=== PATIENT | female | born 1985 | race Two or more races ===

== ENCOUNTER 2019-05-09 13:21 | Emergency (ER) | payer MEDICAID ==
[2019-05-09 14:02] LABS: BILIRUBIN,URINE NEGATIVE (NEGATIVE); GLUCOSE, URINE (UA) NEGATIVE (NEGATIVE); KETONES,URINE (UA) NEGATIVE (NEGATIVE); LEUKOCYTE ESTERASE, URINE NEGATIVE (NEGATIVE); NITRITE,URINE NEGATIVE (NEGATIVE); OCCULT BLOOD,URINE TRACE-INTA (NEGATIVE); PROTEIN,URINE NEGATIVE (NEGATIVE); UROBILINOGEN,URINE 0.2 (NORMAL) E.U./dL (NORMAL)
[2019-05-09 14:03] LABS: CLARITY,URINE CLEAR (CLEAR)
[2019-05-09 14:13] LABS: BACTERIA,URINE None Seen /HPF (None Seen); RBC,URINE 0-5 /HPF (0-5); SQUAMOUS EPITHELIAL CELL,UR NONE SEEN (<= Few)
--- NOTE | 2019-05-09 14:25 | ED Physician Documentation ---
PD HPI FEMALE - Stated complaint Stated Complaint: LBP SPOTTING 6 WKS - Chief complaint Chief Complaint: Abd Pain - History obtained from History obtained from: Patient - History of Present Illness Timing - onset: Yesterday Timing - duration: Days (1) Timing - details: Abrupt onset Severity Comments: mild blood in urine when she wiped Associated symptoms: Abdominal pain (mild diffuse cramping in low back and abdomen), Back pain, Hematuria. 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 denies: Fever, Chills Nose: reports: Reviewed and negative Throat: reports: Reviewed and negative Cardiac: reports: Reviewed and negative Respiratory: reports: Reviewed and negative GI: reports: Abdominal Pain. denies: Nausea, Vomiting : reports: Hematuria. denies: Dysuria, Frequency, Hesitancy Skin: reports: Reviewed and negative Musculoskeletal: reports: Back pain (low back) Neurologic: reports: Reviewed and negative Immunocompromised: reports: Reviewed and negative PD PAST MEDICAL HISTORY - Past Medical History Past Medical History: No - Past Surgical History Past Surgical History: No - Allergies Allergies/Adverse Reactions: Allergies Allergy/AdvReac Type Severity Reaction Status Date / Time No Known Drug Allergies Allergy Verified 05/09/19 13:23 - Social History Does the pt smoke?: No Smoking Status: Never smoker Does the pt drink ETOH?: No Does the pt have substance abuse?: No - Immunizations Immunizations are current?: Yes PD ED PE NORMAL - Vitals Vital signs reviewed: Yes - General General: Alert and oriented X 3, No acute distress, Well developed/nourished - HEENT HEENT: Atraumatic, Pharynx benign - Neck Neck: Supple, no meningeal sign, No JVD - Cardiac Cardiac: RRR - Respiratory Respiratory: No respiratory distress - Abdomen Abdomen: Soft, Non tender, Non distended - Female Female : Deferred - Rectal Rectal: Deferred - Back Back: No CVA TTP - Derm Derm: Normal color, Warm and dry, No rash - Extremities Extremities: No deformity, No edema - Neuro Neuro: Alert and oriented X 3 Eye Opening: Spontaneous Motor: Obeys Commands Verbal: Oriented GCS Score: 15 - Psych Psych: Normal mood, Normal affect Results - Vitals Vitals: Vital Signs - 24 hr 05/09/19 13:23 Temperature 36.8 C Heart Rate 65 Respiratory 16 Rate Blood Pressure 124/68 O2 Saturation 100 Oxygen O2 Source Room air - Labs Labs: Laboratory Tests 05/09/19 13:30 Urine Color YELLOW Urine Clarity CLEAR Urine pH 6.0 Ur Specific [place] 1.025 Urine Protein NEGATIVE Urine Glucose (UA) NEGATIVE Urine Ketones NEGATIVE Urine Occult Blood TRACE-INTA Urine Nitrite NEGATIVE Urine Bilirubin NEGATIVE Urine Urobilinogen 0.2 (NORMAL) Ur Leukocyte Esterase NEGATIVE Urine RBC 0-5 Urine WBC 0-3 Ur Squamous Epith Cells NONE SEEN Urine Bacteria None Seen only trace blood, no UTI Procedures - Bedside sono Bedside sono by EMP: I performed a bedside US which demonstrated a single IUP of 6 weeks 5 days CRL with a FHR of 150. No free fluid. PD MEDICAL DECISION MAKING - ED course Complexity details: reviewed results, re-evaluated patient, considered differential, d/w patient ED course: ddx- miscarriage, ectopic , threatened , UTI, hematuria 34 y/o F with mild hematuria today, no urinary symptoms reports generally some fatigue for a few days and low back cramps and abdominal cramps, currently mild. IUP on US and neg urine here. Pt iwth nontender abdomen. Discussed results iwth pt and she is stable for discharg with return precautions if worsening pain, severe bleeding or fever. Departure - Departure Disposition: 01 Home, Self Care Clinical Impression: Threatened Condition: Stable Instructions: Bleeding Early Preg Follow-Up: your, doctor [Other] Comments: Your urine test today was negative for infection or significant bleeding. Your ultrasound showed a 6 week 5 day old crown rump length of the baby. It's heart rate was normal, 150. This is called a threatened miscarriage which is not uncommon in . It just means you're having bleeding in your but it often resolves on its own without any impact on the . If your bleeding becomes severe or you develop new concerning symptoms such as syncope you should return to the ED.
[2019-05-09 14:36] VITALS: BP 120/68
== END 2019-05-09 14:35 | disposition home or self-care (01) ==
LOC: ED 13:21
DX: O20.0 Threatened abortion (principal); Z3A.01 Less than 8 weeks gestation of pregnancy
CPT/HCPCS: 81001; 99283

== ENCOUNTER 2019-08-31 09:44 | Outpatient (CLI) | payer MEDICAID ==
--- NOTE | 2019-09-02 15:27 | Ultrasound Report ---
Reason: SUPERVISION NORMAL 2ND TRIMESTER Procedure Date: 08/31/2019 Accession Number: [id number] / [id number] Procedure: US - OB Detailed Eval CPT Code: Final Report FULL RESULT: EXAM: COMPLETE OBSTETRICAL ULTRASOUND EXAM DATE: 08/31/2019 11:16 AM. CLINICAL HISTORY: anatomic survey. COMPARISON: None. TECHNIQUE: Real-time sonographic evaluation of the fetus performed by the fast food delivery driver. Multiple union representative static images were saved for review. DATING: Established EGA 22 weeks 6 days with JOVANA 12/29/2019 based on provider statement. EGA 22 weeks 5 days with JOVANA 12/30/2019 based on the current ultrasound. GENERAL EVALUATION Vanessa . Cardiac activity: 162 bpm. movement: Present Presentation: Variable Placenta: Anterior position. No evidence for previa. Umbilical cord: 3 vessel cord. Central placental cord origin. Amniotic fluid: Subjectively normal. MVP 5.6 cm. BIOMETRY Bi-Parietal Diameter (BPD): 5.2 cm, 21 weeks 5 days Head Circumference (HC): 20.1 cm, 22 weeks 2 days Abdominal Circumference (AC): 18.5 cm, 23 weeks 2 days Femur Length (FL): 4.1 cm, 23 weeks 3 days Estimated Weight: 567 g, 57th percentile for 22 weeks 6 days. ANATOMY The intracranial structures, profile, face/nose/lips, spine, 4 chamber heart and outflow tracts, stomach, abdominal wall and cord insertion, diaphragm, kidneys, bladder, and extremities were seen and demonstrate no abnormality. MATERNAL STRUCTURES Uterus: Unremarkable. Cervix: Long and closed. Transabdominal length 5.3 cm. Right ovary/adnexa: Unremarkable. Left ovary/adnexa: Unremarkable. Free fluid: None. IMPRESSION: 1. Vanessa intrauterine with gestational age 22 weeks 6 days based on provider statement. 2. Estimated weight is within expected limits for assigned dating. 3. Normal anatomic survey. No anatomic abnormalities are detected at this time. RADIA
== END 2019-08-31 09:45 | disposition home or self-care (01) ==
LOC: DI 09:44
PROVIDERS: ATTEND Midwife
DX: Z34.82 Encounter for supervision of other normal pregnancy, second trimester (principal); Z36.9 Encounter for antenatal screening, unspecified
CPT/HCPCS: 76811

== ENCOUNTER 2020-01-20 10:09 | Outpatient (CLI) | payer MEDICAID ==
--- NOTE | 2020-01-20 19:17 | Ultrasound Report ---
Reason: RETAINED PRODUCTS OF CONCEPTION Procedure Date: 01/20/2020 Accession Number: [id number] / [id number] Procedure: US - Pelvic w/Transvaginal CPT Code: Final Report FULL RESULT: PROCEDURE: Pelvic w/Transvaginal INDICATIONS: RETAINED PRODUCTS OF CONCEPTION TECHNIQUE: Real-time scanning was performed of the pelvic organs, with image documentation. Additional endovaginal scanning was necessary due to incomplete visualization of the adnexal and endometrial structures by transabdominal scanning. COMPARISON: None. FINDINGS: Transabdominal scanning: Limited scanning through the kidneys shows no hydronephrosis. No pathologic free abdominal or pelvic fluid. Endovaginal scanning: Uterus: Uterus is normal in size at 5.8 x 9.2 x 11.3 cm. The endometrium measures 15 mm in combined thickness. There is evidence of retained products of conception within the endometrial space as indicated by a 2.2 x 1.9 x 2.7 cm hypoechoic structure in the endometrial cavity, without increased vascularity along its margins. Ovaries: The left ovary could not be seen, the right ovary appears normal measuring 3.8 x 2.0 x 2.4 cm. IMPRESSION: The endometrial space contains a hypoechoic structure measuring 2.2 x 1.9 x 2.7 cm consistent with retained products of conception. Normal-appearing right ovary, nonvisualized left ovary. Reviewed by: Ethan Truong MD on 01/20/2020 7:16 PM PDT Approved by: Ethan Truong MD on 01/20/2020 7:16 PM PDT Station ID: [id number]
== END 2020-01-20 10:10 | disposition home or self-care (01) ==
LOC: DI 10:09
PROVIDERS: ATTEND Midwife
DX: O73.1 Retained portions of placenta and membranes, without hemorrhage (principal); O72.2 Delayed and secondary postpartum hemorrhage; Z3A.00 Weeks of gestation of pregnancy not specified
CPT/HCPCS: 76830; 76856

== ENCOUNTER 2020-01-20 16:07 | Emergency (ER) | payer MEDICAID ==
[2020-01-20] MEDS ORDERED: SODIUM CHLORIDE 0.9% 1,000 ML IV STA (16:40)
[2020-01-20 16:49] LABS: BASOPHILS % (AUTO) 0.3 %; EOSINOPHILS % (AUTO) 0.3 %; HGB - HEMOGLOBIN 13.7 g/dL (12.0-16.0); LYMPHOCYTES # (AUTO) 1.7 10^3/uL (1.5-3.5); LYMPHOCYTES % (AUTO) 11.5 %; MEAN CORPUSCULAR HGB CONC 31.5 g/dL (32.0-36.0); MEAN CORPUSCULAR VOLUME 76.3 fL (81.0-99.0); MEAN PLATELET VOLUME 10.8 fL (7.9-10.8); MONOCYTES # (AUTO) 0.7 10^3/uL (0.0-1.0); MONOCYTES % (AUTO) 4.8 %; NEUTROPHILS # (AUTO) 12.2 10^3/uL (1.5-6.6); NEUTROPHILS % (AUTO) 82.6 %; PLT - PLATELET COUNT 235 10^3/uL (130-450); RED CELL DISTRIBUTION WIDTH 19.5 % (12.0-15.0); WHITE BLOOD COUNT 14.7 x10^3/uL (4.8-10.8)
[2020-01-20 17:00] LABS: ALBUMIN 4.5 g/dL (3.2-5.5); ALBUMIN/GLOBULIN RATIO 1.3 (1.0-2.2); BILIRUBIN,TOTAL 0.6 mg/dL (0.2-1.0); CALCIUM 9.4 mg/dL (8.5-10.3); CREATININE 0.7 mg/dL (0.4-1.0); TOTAL PROTEIN 8.1 g/dL (6.7-8.2)
[2020-01-20 17:12] LABS: INR 1.1 (0.8-1.2); PT - PROTHROMBIN TIME 12.8 secs (9.9-12.6)
[2020-01-20 17:31] LABS: BILIRUBIN,URINE NEGATIVE (NEGATIVE); GLUCOSE, URINE (UA) NEGATIVE (NEGATIVE); KETONES,URINE (UA) NEGATIVE (NEGATIVE); LEUKOCYTE ESTERASE, URINE SMALL (NEGATIVE); NITRITE,URINE NEGATIVE (NEGATIVE); OCCULT BLOOD,URINE MODERATE (NEGATIVE); PROTEIN,URINE NEGATIVE (NEGATIVE); UROBILINOGEN,URINE 0.2 (NORMAL) E.U./dL (NORMAL)
[2020-01-20 17:34] LABS: CLARITY,URINE CLEAR (CLEAR)
[2020-01-20 17:43] LABS: BACTERIA,URINE None Seen /HPF (None Seen); RBC,URINE 0-5 /HPF (0-5); SQUAMOUS EPITHELIAL CELL,UR NONE SEEN (<= Few)
[2020-01-20] MEDS ORDERED: NITROFURANTOIN MACRO 100 MG CAPSULE PO STA (18:50)
--- NOTE | 2020-01-20 19:25 | ED Physician Documentation ---
History of Present Illness - Stated complaint Stated Complaint: CRAMPING - Chief complaint Chief Complaint: Abd Pain - History obtained from History obtained from: Patient - Additonal information Additional information: Pt comes to the ED complaining of low abdominal cramping and an increase in vaginal bleeding 3 weeks post-. She was seen by her latex ribbon machine operator today and found to have a temperature of 100.4, so was sent to the ED for further eval. No dysuria. No vomiting. No chills. Pt otherwise feels well. No breast redness or streaking. No upper respiratory sx. Pt states her bleeding is tapering off again now, after being heavier. Review of Systems Ten Systems: 10 systems reviewed and negative Constitutional: reports: Reviewed and negative Eyes: reports: Reviewed and negative Ears: reports: Reviewed and negative Nose: reports: Reviewed and negative Throat: reports: Reviewed and negative Cardiac: reports: Reviewed and negative Respiratory: reports: Reviewed and negative GI: reports: Reviewed and negative : reports: Reviewed and negative Skin: reports: Reviewed and negative Musculoskeletal: reports: Reviewed and negative Neurologic: reports: Reviewed and negative Psychiatric: reports: Reviewed and negative Endocrine: reports: Reviewed and negative Immunocompromised: reports: Reviewed and negative PD PAST MEDICAL HISTORY - Past Surgical History Past Surgical History: No - Present Medications Home Medications: Ambulatory Orders Medication Instructions Recorded Confirmed Nitrofurantoin Monohyd/M-Cryst 100 mg PO BID #14 capsule 01/20/20 01/21/20 [Macrobid 100 mg Capsule] Amox/Clav 875/125 [Augmentin] 1 each PO Q12H #14 tablet 01/21/20 - Allergies Allergies/Adverse Reactions: Allergies Allergy/AdvReac Type Severity Reaction Status Date / Time No Known Drug Allergies Allergy Verified 01/21/20 18:04 - Social History Does the pt smoke?: No Smoking Status: Never smoker Does the pt drink ETOH?: No Does the pt have substance abuse?: No - Immunizations Immunizations are current?: Yes PD ED PE NORMAL - Vitals Vital signs reviewed: Yes - General General: Alert and oriented X 3, No acute distress - HEENT HEENT: Atraumatic, PERRL, EOMI, Moist mucous membranes - Neck Neck: Supple, no meningeal sign - Cardiac Cardiac: RRR, No murmur, Strong equal pulses - Respiratory Respiratory: No respiratory distress, Clear bilaterally - Abdomen Abdomen: Soft, Non tender, Non distended, Other (mild suprapubic tenderness.) - Derm Derm: Warm and dry - Extremities Extremities: No deformity - Neuro Neuro: Alert and oriented X 3 - Psych Psych: Normal mood, Normal affect Results - Vitals Vitals: Oxygen O2 Source Room air - Labs Labs: Microbiology 01/20/20 17:20 Urine Culture - Final Urine,Clean Catch 10-50,000 COLONIES/ML Polymicrobial growth including potential pathogens. This is suggestive of skin or other contamination. Laboratory Tests 01/20/20 01/20/20 01/20/20 16:33 16:33 16:33 WBC 14.7 H RBC 5.70 H Hgb 13.7 Hct 43.5 MCV 76.3 L MCH 24.0 L MCHC 31.5 L RDW 19.5 H Plt Count 235 MPV 10.8 Neut # (Auto) 12.2 H Lymph # (Auto) 1.7 [place] # (Auto) 0.7 Eos # (Auto) 0.0 Baso # (Auto) 0.0 Absolute Nucleated RBC 0.00 Nucleated RBC % 0.0 PT INR Sodium 135 Potassium 3.8 Chloride 102 Carbon Dioxide 22 Anion Gap 11.0 BUN 12 Creatinine 0.7 Estimated GFR (MDRD) 96 Glucose 106 H Calcium 9.4 Total Bilirubin 0.6 AST 22 ALT 25 Alkaline Phosphatase 83 Total Protein 8.1 Albumin 4.5 Globulin 3.6 Albumin/Globulin Ratio 1.3 Lipase 31 Urine Color Urine Clarity Urine pH Ur Specific [place] Urine Protein Urine Glucose (UA) Urine Ketones Urine Occult Blood Urine Nitrite Urine Bilirubin Urine Urobilinogen Ur Leukocyte Esterase Urine RBC Urine WBC Ur Squamous Epith Cells Urine Bacteria Ur Microscopic Review Urine Culture Comments Blood Type Blood Type Recheck A POSITIVE Antibody Screen 01/20/20 01/20/20 01/20/20 16:55 16:55 17:20 WBC RBC Hgb Hct MCV MCH MCHC RDW Plt Count MPV Neut # (Auto) Lymph # (Auto) [place] # (Auto) Eos # (Auto) Baso # (Auto) Absolute Nucleated RBC Nucleated RBC % PT 12.8 H INR 1.1 Sodium Potassium Chloride Carbon Dioxide Anion Gap BUN Creatinine Estimated GFR (MDRD) Glucose Calcium Total Bilirubin AST ALT Alkaline Phosphatase Total Protein Albumin Globulin Albumin/Globulin Ratio Lipase Urine Color YELLOW Urine Clarity CLEAR Urine pH 6.0 Ur Specific [place] <=1.005 Urine Protein NEGATIVE Urine Glucose (UA) NEGATIVE Urine Ketones NEGATIVE Urine Occult Blood MODERATE H Urine Nitrite NEGATIVE Urine Bilirubin NEGATIVE Urine Urobilinogen 0.2 (NORMAL) Ur Leukocyte Esterase SMALL H Urine RBC 0-5 Urine WBC 6-10 H Ur Squamous Epith Cells NONE SEEN Urine Bacteria None Seen Ur Microscopic Review INDICATED Urine Culture Comments INDICATED Blood Type A POSITIVE Blood Type Recheck Antibody Screen NEGATIVE PD MEDICAL DECISION MAKING - ED course Complexity details: reviewed results, re-evaluated patient, considered differential, d/w patient ED course: Pt was worked up with labs, which were unremarkable, and UA, which was positive for infection. US was performed by [employer], and reported to be unremarkable by [employer], but images were not visible in the PACs system. I had staff contact [employer], who stated she had sent the images to the radiologist to provide official reading. AFter an unacceptable length of time, images still had not been recovered, and pt, who was stable in the ED, had a cause for her lower abdominal discomfort, and reported bleeding to be light, was ready to go home. I have advised the pt regarding home management of sx and follow-up, as well as the usual indications for return. As of the writing of this note, the US images still have not been recovered or read. Departure - Departure Disposition: 01 Home, Self Care Clinical Impression: Urinary tract infection Qualifiers: Urinary tract infection type: acute cystitis Hematuria presence: without hematuria Qualified Code(s): N30.00 - Acute cystitis without hematuria Condition: Stable Instructions: ED UTI Cystitis Female Prescriptions: Nitrofurantoin Monohyd/M-Cryst [Macrobid 100 mg Capsule] 100 mg PO BID #14 capsule Comments: Your tests show that you have a urinary tract infection. This is most likely the cause of your low-grade fever and the mild elevation white blood cell count that you have. There is no evidence of a uterine infection at this time. Please follow-up with your primary care physician, as needed. Take all of the antibiotics as directed until gone. Discharge Date/Time: 01/20/20 19:39
[2020-01-20 19:28] VITALS: BP 119/79
== END 2020-01-20 19:39 | disposition home or self-care (01) ==
LOC: ED 16:07
DX: O86.22 Infection of bladder following delivery (principal)
CPT/HCPCS: 36415; 80053; 81001; 83690; 85025; 85610; 86850; 86900; 86901; 87086; 96360; 99284; A9270; 81003

== ENCOUNTER 2020-01-21 17:46 | Emergency (ER) | payer MEDICAID ==
[2020-01-21 18:04] VITALS: BP 126/88
--- NOTE | 2020-01-21 18:15 | ED Physician Documentation ---
History of Present Illness - Stated complaint Stated Complaint: ISSUES - Chief complaint Chief Complaint: General - History obtained from History obtained from: Patient - History of Present Illness Pain level max: 3 Pain level now: 2 - Additonal information Additional information: Patient is 3 weeks status post vaginal delivery. Had an ultrasound yesterday that showed retained products of conception. Had a fever yesterday. No fevers today. Currently on Macrobid for UTI. Nothing makes it better or worse. She is having a small amount of bleeding and discharge. She also has suprapubic pain, worse with movement and better with rest. Review of Systems Constitutional: reports: Fever (Yesterday, none today) GI: denies: Vomiting, Diarrhea Skin: denies: Rash Musculoskeletal: denies: Neck pain, Back pain Neurologic: denies: Headache PD PAST MEDICAL HISTORY - Past Medical History Past Medical History: No - Past Surgical History Past Surgical History: No - Present Medications Home Medications: Ambulatory Orders Medication Instructions Recorded Confirmed Nitrofurantoin Monohyd/M-Cryst 100 mg PO BID #14 capsule 01/20/20 01/21/20 [Macrobid 100 mg Capsule] Amox/Clav 875/125 [Augmentin] 1 each PO Q12H #14 tablet 01/21/20 - Allergies Allergies/Adverse Reactions: Allergies Allergy/AdvReac Type Severity Reaction Status Date / Time No Known Drug Allergies Allergy Verified 01/21/20 18:04 - Social History Does the pt smoke?: No Smoking Status: Never smoker Does the pt drink ETOH?: No Does the pt have substance abuse?: No - Immunizations Immunizations are current?: Yes PD ED PE NORMAL - Vitals Vital signs reviewed: Yes - General General: Alert and oriented X 3, No acute distress, Well developed/nourished - HEENT HEENT: Moist mucous membranes - Neck Neck: Supple, no meningeal sign - Cardiac Cardiac: RRR, Strong equal pulses - Respiratory Respiratory: No respiratory distress, Clear bilaterally - Abdomen Abdomen: Soft, Non distended, Other (Mild tender to palpation suprapubic. No peritoneal signs) - Female Female : Other (Deferred to OB) - Derm Derm: Warm and dry - Extremities Extremities: No calf tenderness / cord - Neuro Neuro: Alert and oriented X 3 - Psych Psych: Normal mood, Normal affect Results - Vitals Vitals: Vital Signs - 24 hr 01/21/20 17:48 Temperature 37.2 C Heart Rate 73 Respiratory 16 Rate Blood Pressure 126/88 H O2 Saturation 98 Oxygen O2 Source Room air - Labs Labs: Laboratory Tests 01/21/20 01/21/20 01/21/20 18:18 18:18 18:32 WBC 6.9 RBC 5.28 Hgb 12.8 Hct 41.2 MCV 78.0 L MCH 24.2 L MCHC 31.1 L RDW 19.6 H Plt Count 218 MPV 10.7 Neut # (Auto) 4.1 Lymph # (Auto) 2.1 [place] # (Auto) 0.5 Eos # (Auto) 0.3 Baso # (Auto) 0.0 Absolute Nucleated RBC 0.00 Nucleated RBC % 0.0 Sodium 139 Potassium 3.7 Chloride 106 Carbon Dioxide 23 Anion Gap 10.0 BUN 18 Creatinine 0.7 Estimated GFR (MDRD) 96 Glucose 92 Lactic Acid 0.7 Calcium 8.9 Total Bilirubin 0.6 AST 22 ALT 25 Alkaline Phosphatase 71 Total Protein 7.7 Albumin 4.1 Globulin 3.6 Albumin/Globulin Ratio 1.1 Lipase 30 PD MEDICAL DECISION MAKING - ED course Complexity details: reviewed old records, reviewed results, re-evaluated patient, considered differential, d/w patient, d/w window covering sales consultant ED course: Dr. Valencia from OB came and evaluated the patient. We will change her to Augmentin. We will have her follow-up with her powerbuilder as an outpatient. She is very well-appearing, nontoxic. Afebrile here. No evidence of significant endometritis. Pelvic examination was done by Dr. Valencia as well. Patient counseled regarding signs and symptoms for which I believe and urgent re- evaluation would be necessary. Patient with good understanding of and agreement to plan and is comfortable going home at this time This document was made in part using voice recognition software. While efforts are made to proofread this document, sound alike and grammatical errors may occur. Departure - Departure Disposition: 01 Home, Self Care Clinical Impression: Retained products of conception Urinary tract infection Qualifiers: Urinary tract infection type: acute cystitis Hematuria presence: without hematuria Qualified Code(s): N30.00 - Acute cystitis without hematuria Condition: Good Instructions: ED UTI Cystitis Female Follow-Up: Melanie Ho LMW [Physician No Access] - Within 3 Days Prescriptions: Amox/Clav 875/125 [Augmentin] 1 each PO Q12H #14 tablet Comments: You can stop the Macrobid. Return if you worsen. Follow-up with your powerbuilder in 3 days for repeat evaluation. Return sooner if you worsen. Discharge Date/Time: 01/21/20 20:05
[2020-01-21 18:26] LABS: BASOPHILS % (AUTO) 0.4 %; EOSINOPHILS # (AUTO) 0.3 10^3/uL (0.0-0.7); EOSINOPHILS % (AUTO) 3.6 %; HGB - HEMOGLOBIN 12.8 g/dL (12.0-16.0); LYMPHOCYTES # (AUTO) 2.1 10^3/uL (1.5-3.5); LYMPHOCYTES % (AUTO) 29.8 %; MEAN CORPUSCULAR HEMOGLOBIN 24.2 pg (27.0-31.0); MEAN CORPUSCULAR HGB CONC 31.1 g/dL (32.0-36.0); MEAN PLATELET VOLUME 10.7 fL (7.9-10.8); MONOCYTES # (AUTO) 0.5 10^3/uL (0.0-1.0); MONOCYTES % (AUTO) 7.3 %; NEUTROPHILS # (AUTO) 4.1 10^3/uL (1.5-6.6); NEUTROPHILS % (AUTO) 58.8 %; PLT - PLATELET COUNT 218 10^3/uL (130-450); RED BLOOD COUNT 5.28 10^6/uL (4.20-5.40); RED CELL DISTRIBUTION WIDTH 19.6 % (12.0-15.0); WHITE BLOOD COUNT 6.9 x10^3/uL (4.8-10.8)
[2020-01-21 19:03] LABS: ALBUMIN 4.1 g/dL (3.2-5.5); ALBUMIN/GLOBULIN RATIO 1.1 (1.0-2.2); BILIRUBIN,TOTAL 0.6 mg/dL (0.2-1.0); CALCIUM 8.9 mg/dL (8.5-10.3); CREATININE 0.7 mg/dL (0.4-1.0); TOTAL PROTEIN 7.7 g/dL (6.7-8.2)
[2020-01-21] MEDS ORDERED: AMOX/CLAV 875 MG/125 MG TABLET PO STA (19:20)
--- NOTE | 2020-01-21 19:45 | CONSULTATION NOTE ---
Referring Provider Name of Referring Provider:: Dr. Guzman Consult Date: 01/21/20 Chief Complaint - Chief Complaint Chief Complaint: fever and bleeding History of Present Illness - History of Present Illness HPI Comment/Other: Patient is a 34 yo female approximately 3 weeks pp from home/[facility] who presents with abdominal pain, VB, fever. Patient was seen in ED yesterday with increased vaginal bleeding, abdominal pain, and fever. WBC was elevated to 14.7 and temp was 100.4. HR 126. Both tachycardia and febrile temp resolved while under observation. Patient had a pelvic us ordered by her outside OB provider which was later read to have a small amount of retained POCs (less than 2.5 cm in greatest dimension). She was discharged home on nitrofurantoin. Patient continued to have some pain and passed a small clot this am that had some substance to it, per her description. At present, she reports that she continues to pass darker blood but the volume has decreased. Pain is mainly in the left upper quadrant and when she turned to her side, she could feel it migrate to her right. Bowel movement this am. Bowel movement prior to that was yesterday. No nausea/vomiting/diarrhea. Tolerating po. No fevers. Meds/Allgy - Home Medications Home Medications: Ambulatory Orders Medication Instructions Recorded Confirmed Nitrofurantoin Monohyd/M-Cryst 100 mg PO BID #14 capsule 01/20/20 01/21/20 [Macrobid 100 mg Capsule] Amox/Clav 875/125 [Augmentin] 1 each PO Q12H #14 tablet 01/21/20 - Allergies Allergies/Adverse Reactions: Allergies Allergy/AdvReac Type Severity Reaction Status Date / Time No Known Drug Allergies Allergy Verified 01/21/20 18:04 Review of Systems - Other Findings Other Findings: As per HPI, otherwise remaining systems are negative. Exam - Vital Signs Reviewed Vital Signs: Yes Vital Signs: Vital Signs x48h Temp Pulse Resp BP Pulse Ox 01/21/20 17:48 99.0 F 73 16 126/88 H 98 - Physical Exam General Appearance: positive: No acute distress Neck: positive: Nml inspection Respiratory: positive: No respiratory distress Cardiovascular: positive: Other (RR) Abdomen: positive: Non-tender, Other (soft and minimally tender in suprapubic area. Unable to replicate tenderness in LUQ. No masses) Skin: positive: Color nml, Warm, Dry Extremities: positive: Non-tender, No pedal edema Neurologic/Psychiatric: positive: Oriented x3 Comments/Other: DIRECTOR OF LITIGATION: NEFG. No eileen bleeding and introitus. No CMT. Mild fundal tenderness on BME. Minimal blood on exam glove. Conclusion/Plan - Diagnosis Diagnosis: abdominal pain - Plan Plan: Leukocytosis, tachycardia, febrile temp from prior presentation currently resolved Patient passed dime sized clot this am without significant bleeding since. Concerns for retained POCs low Mild uterine tenderness but no CMT Degree of bleeding lessened and passage of clot may indicate passage of POCs; no intervention indicated for retained POCs at this time -Not meeting criteria for endometritis at this presentation Recommend converting antibiotic therapy to Augmentin 875 mg po bid x 7 days to cover possible UTI and possible endometrial pathogens Reviewed warning signs for endometritis Recommend fu with OB provider - Lab Results Fish Bones: 01/21/20 18:18 01/21/20 18:32
== END 2020-01-21 20:05 | disposition home or self-care (01) ==
LOC: ED 17:46
DX: O86.20 Urinary tract infection following delivery, unspecified (principal); O72.2 Delayed and secondary postpartum hemorrhage; Z37.9 Outcome of delivery, unspecified
CPT/HCPCS: 36415; 80053; 83605; 83690; 85025; 99283; 99284; A9270

== ENCOUNTER 2021-09-26 17:56 | Emergency (ER) | payer MEDICAID ==
[2021-09-26 21:06] LABS: BASOPHILS % (AUTO) 0.4 %; EOSINOPHILS # (AUTO) 0.2 10^3/uL (0.0-0.7); EOSINOPHILS % (AUTO) 2.9 %; HCT - HEMATOCRIT 38.4 % (37.0-47.0); LYMPHOCYTES # (AUTO) 2.3 10^3/uL (1.5-3.5); LYMPHOCYTES % (AUTO) 30.8 %; MEAN CORPUSCULAR HGB CONC 31.3 g/dL (32.0-36.0); MEAN CORPUSCULAR VOLUME 76.6 fL (81.0-99.0); MEAN PLATELET VOLUME 10.5 fL (7.9-10.8); MONOCYTES # (AUTO) 0.6 10^3/uL (0.0-1.0); MONOCYTES % (AUTO) 7.6 %; NEUTROPHILS # (AUTO) 4.3 10^3/uL (1.5-6.6); PLT - PLATELET COUNT 277 10^3/uL (130-450); RED BLOOD COUNT 5.01 10^6/uL (4.20-5.40); RED CELL DISTRIBUTION WIDTH 14.3 % (12.0-15.0); WHITE BLOOD COUNT 7.3 x10^3/uL (4.8-10.8)
[2021-09-26 21:19] LABS: CREATININE 0.6 mg/dL (0.4-1.0); POTASSIUM 3.6 mmol/L (3.5-5.0)
[2021-09-26] MEDS ORDERED: IOVERSOL 320 100 ML VIAL IVP ONE ×2 (21:20→21:47)
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
[2021-09-27 00:12] LABS: B. PARAPERTUSSIS- RESP PCR PAN NOT DETECTED; B. PERTUSSIS- RESP PCR PANEL NOT DETECTED; C. PNEUMONIAE- RESP PCR PANEL NOT DETECTED; CORONAVIRUS 229E-RESP PCR NOT DETECTED; CORONAVIRUS HKU1-RESP PCR NOT DETECTED; CORONAVIRUS NL63-RESP PCR NOT DETECTED; CORONAVIRUS OC43-RESP PCR NOT DETECTED; HUMAN METAPNEUMOVIRUS NOT DETECTED; INFLUENZA A- RESP PCR PANEL NOT DETECTED; INFLUENZA B - RESP PCR PANEL NOT DETECTED; M. PNEUMONIAE- RESP PCR PANEL NOT DETECTED; PARAINFLUENZA VIRUS 1 NOT DETECTED; PARAINFLUENZA VIRUS 2 NOT DETECTED; PARAINFLUENZA VIRUS 3 NOT DETECTED; PARAINFLUENZA VIRUS 4 NOT DETECTED; RHINOVIRUS/ENTEROVIRUS NOT DETECTED; RSV- RESP PCR PANEL NOT DETECTED; SARS-CoV-2 -RESP PCR PANEL NOT DETECTED
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
[2021-09-27 02:22] VITALS: BP 115/76
== END 2021-09-27 02:35 | disposition home or self-care (01) ==
LOC: ED 17:56
DX: M54.2 Cervicalgia (principal); R51.9 Headache, unspecified; E04.1 Nontoxic single thyroid nodule; Y04.2XXA Assault by strike against or bumped into by another person, initial encounter; Z20.822 Contact with and (suspected) exposure to COVID-19
CPT/HCPCS: 0202U; 36415; 70491; 80048; 85025; 99284; Q9967

== ENCOUNTER 2022-03-31 09:00 | Emergency (ER) | payer MEDICAID ==
[2022-03-31 09:14] VITALS: BP 143/73
[2022-03-31] MEDS ORDERED: SODIUM CHLORIDE 0.9% 1,000 ML IV STA (10:26)
[2022-03-31 10:36] LABS: BASOPHILS % (AUTO) 0.3 %; EOSINOPHILS # (AUTO) 0.1 10^3/uL (0.0-0.7); EOSINOPHILS % (AUTO) 0.7 %; HCT - HEMATOCRIT 38.6 % (37.0-47.0); HGB - HEMOGLOBIN 12.2 g/dL (12.0-16.0); LYMPHOCYTES # (AUTO) 1.7 10^3/uL (1.5-3.5); LYMPHOCYTES % (AUTO) 14.9 %; MEAN CORPUSCULAR HEMOGLOBIN 24.6 pg (27.0-31.0); MEAN CORPUSCULAR HGB CONC 31.6 g/dL (32.0-36.0); MEAN CORPUSCULAR VOLUME 77.8 fL (81.0-99.0); MEAN PLATELET VOLUME 9.5 fL (7.9-10.8); MONOCYTES # (AUTO) 1.2 10^3/uL (0.0-1.0); MONOCYTES % (AUTO) 10.3 %; NEUTROPHILS # (AUTO) 8.4 10^3/uL (1.5-6.6); NEUTROPHILS % (AUTO) 73.3 %; PLT - PLATELET COUNT 267 10^3/uL (130-450); RED BLOOD COUNT 4.96 10^6/uL (4.20-5.40); RED CELL DISTRIBUTION WIDTH 15.9 % (12.0-15.0); WHITE BLOOD COUNT 11.5 x10^3/uL (4.8-10.8)
[2022-03-31 10:49] LABS: ALBUMIN 4.1 g/dL (3.2-5.5); ALBUMIN/GLOBULIN RATIO 0.9 (1.0-2.2); CALCIUM 9.4 mg/dL (8.5-10.3); CREATININE 0.6 mg/dL (0.4-1.0); POTASSIUM 3.8 mmol/L (3.5-5.0); TOTAL PROTEIN 8.8 g/dL (6.7-8.2)
[2022-03-31 10:59] LABS: BILIRUBIN,URINE NEGATIVE (NEGATIVE); GLUCOSE, URINE (UA) NEGATIVE (NEGATIVE); KETONES,URINE (UA) 40 mg/dL (NEGATIVE); LEUKOCYTE ESTERASE, URINE NEGATIVE (NEGATIVE); NITRITE,URINE NEGATIVE (NEGATIVE); OCCULT BLOOD,URINE MODERATE (NEGATIVE); PROTEIN,URINE TRACE mg/dL (NEGATIVE); UROBILINOGEN,URINE 1 (NORMAL) E.U./dL (NORMAL)
[2022-03-31 11:06] LABS: CLARITY,URINE CLEAR (CLEAR)
[2022-03-31 11:07] LABS: BACTERIA,URINE Few /HPF (None Seen); CASTS, URINE 0-2 Granular Casts /LPF; SQUAMOUS EPITHELIAL CELL,UR RARE Squamous (<= Few); WBC,URINE 0-3 /HPF (0-5)
[2022-03-31 11:48] LABS: B. PARAPERTUSSIS- RESP PCR PAN NOT DETECTED; B. PERTUSSIS- RESP PCR PANEL NOT DETECTED; C. PNEUMONIAE- RESP PCR PANEL NOT DETECTED; CORONAVIRUS 229E-RESP PCR NOT DETECTED; CORONAVIRUS HKU1-RESP PCR NOT DETECTED; CORONAVIRUS NL63-RESP PCR NOT DETECTED; CORONAVIRUS OC43-RESP PCR NOT DETECTED; HUMAN METAPNEUMOVIRUS NOT DETECTED; INFLUENZA A- RESP PCR PANEL NOT DETECTED; INFLUENZA B - RESP PCR PANEL NOT DETECTED; M. PNEUMONIAE- RESP PCR PANEL NOT DETECTED; PARAINFLUENZA VIRUS 1 NOT DETECTED; PARAINFLUENZA VIRUS 2 NOT DETECTED; PARAINFLUENZA VIRUS 3 NOT DETECTED; PARAINFLUENZA VIRUS 4 NOT DETECTED; RHINOVIRUS/ENTEROVIRUS NOT DETECTED; RSV- RESP PCR PANEL NOT DETECTED; SARS-CoV-2 -RESP PCR PANEL NOT DETECTED
[2022-03-31 12:14] LABS: HCG,QUALITATIVE BLOOD NEGATIVE
--- NOTE | 2022-03-31 13:09 | CT Report ---
PROCEDURE: SOFT TISSUE NECK W INDICATIONS: pain/swelling/fever after thyroid bx CONTRAST: IV CONTRAST: Optiray 320 ml: 100 PO CONTRAST: *NO PO CONTRAST TECHNIQUE: After the administration of intravenous contrast, 3.0 mm axial sections acquired from the sella to th e aortic arch. Additional oblique axial 3.0 mm sections acquired through the pharynx. 3 mm thick co tracy reformats were generated. For radiation dose reduction, the following was used: automated exp osure control, adjustment of mA and/or kV according to patient size. COMPARISON: CT neck 10/14/2021 FINDINGS: Image quality: Excellent. Lymph nodes: Borderline enlarged left-sided lymph nodes are present. Vessels: Visualized vasculature appears patent. Neck spaces: The oropharynx, nasopharynx, and pharynx demonstrate no mucosal lesions. The vocal cor ds, false vocal cords, pyriform sinuses, epiglottis, vallecula, and tongue base all appear normal. E xtramucosal spaces appear unremarkable. Glands: The parotid and submandibular glands appear normal. The right thyroid lobe is unremarkable. There is the focus of previously identified left thyroid nodule. However, there is ill-defined expan sile low-attenuation surrounding the nodule extending to the adjacent carotid and jugular vasculature . In addition, there is loss of fat plane secondary to fluid posteriorly to the anterior prevertebral space. There is mild deviation of the trachea and esophagus to the right. Fluid has Hounsfield units measuring approximately 35. Miscellaneous: Visualized brain and orbits appear normal. Lung apices appear clear. Superficial so ft tissues appear normal. Bones: No suspicious bony lesions. Visualized sinuses and mastoids appear unremarkable. IMPRESSION: Ill-defined fluid surrounding thyroid nodule as described above with mass effect. Hounsfield units ar e borderline for hemorrhage. There is no visualization of active extravasation. CLINICAL RECOMMENDATION STATEMENTS: In patients <35 years with an ITN detected on CT, MRI, or extrathyroidal ultrasound, the Committee re commends further evaluation with dedicated thyroid ultrasound if the nodule is "e1 cm and has no susp icious imaging features, and if the patient has normal life expectancy. In patients "e35 years with an ITN detected on CT, MRI, or extrathyroidal ultrasound, the Committee r ecommends further evaluation with dedicated thyroid ultrasound if the nodule is "e1.5 cm and has no s uspicious imaging features, and if the patient has normal life expectancy. (ACR, 2014) Reviewed by: rGace Nguyen MD on 03/31/2022 1:08 PM PDT Approved by: Grace Nguyen MD on 03/31/2022 1:08 PM PDT Station ID: [id number]
--- NOTE | 2022-03-31 14:49 | Ultrasound Report ---
PROCEDURE: Head or Neck Soft Tissue INDICATIONS: fluid collection adjacent to thyroid TECHNIQUE: Real-time scanning was performed of the thyroid gland, with image documentation. COMPARISON: CT Neck 03/31/22 FINDINGS: Right: Thyroid lobe measures 6.0 x 1.5 x 1.6 cm, and is homogeneous in echotexture. Left: Thyroid lobe measures 6.7 x 3.2 x 4.0 cm, and is homogenous in echotexture. Isthmus: Size mm thick. Nodule number: One Location: Left lobe Size: 4.7 x 2.6 x 3.6 cm. Composition: Solid Echogenicity: Hypoechoic Shape: wider than tall. Margins: Lobulated Echogenic foci: none Total points: 4 ACR TI-RADS category: 4 There is no discrete fluid collection. IMPRESSION: Unchanged left thyorid nodule without associated discrete fluid collection such as abscess. However, it is noted that fluid is present adjacent to the left lobe with loss of fat planes on CT without or ganized collection. Reviewed by: Grace Nguyen MD on 03/31/2022 2:47 PM PDT Approved by: Grace Nguyen MD on 03/31/2022 2:47 PM PDT Station ID: [id number]
[2022-03-31] MEDS ORDERED: cephALEXin 250 MG CAPSULE PO STA (15:08)
[2022-03-31] MEDS: SULFAMETH/TRIMETH DS 800/160 MG TABLET PO STA ×2 (15:30→15:58)
[2022-03-31] MEDS ORDERED: DEXTROSE 5% IV ONE (15:51)
[2022-03-31] MEDS ORDERED: TMP IV ONE (15:51)
[2022-03-31] MEDS ORDERED: SMX IV ONE (15:51)
[2022-03-31] MEDS ORDERED: DEXAMETHASONE 10 MG/ML VIAL IV STA (15:54)
--- NOTE | 2022-03-31 16:51 | ED Physician Documentation ---
PD HPI HEENT - Stated complaint Stated Complaint: NECK SWELLING POST BIOPSY - Chief complaint Chief Complaint: Heent - History obtained from History obtained from: Patient - Additional information Additional information: The patient comes to the emergency department chief complaint of anterior neck pain and swelling, worse on the left side, after undergoing a left-sided thyroid nodule biopsy about 5 days ago. She states that for the first couple of days she felt fine but then began to notice that she was developing increasing swelling and pain especially on the left side of her neck and spreading up toward her ear. She states that she has not been able to swallow anything except liquids since 2 days after the biopsy, secondary to pain. She also feels some swelling, though she has so far been able to swallow passes. No difficulty breathing. She states she has had a fever of up to 101 for the past 4 days as well. She is scheduled for a thyroidectomy on April 10 for thyroid cancer. Patient denies any shortness of breath or cough. No nausea or vomiting. No dysuria. She has not been exposed to anybody else has been sick that she knows of. She has not noticed any redness on her neck. No other complaints at this time. Review of Systems Ten Systems: 10 systems reviewed and negative Constitutional: reports: Reviewed and negative Eyes: reports: Reviewed and negative Ears: reports: Reviewed and negative Nose: reports: Reviewed and negative Throat: reports: Reviewed and negative Cardiac: reports: Reviewed and negative Respiratory: reports: Reviewed and negative GI: reports: Reviewed and negative : reports: Reviewed and negative Skin: reports: Reviewed and negative Musculoskeletal: reports: Reviewed and negative Neurologic: reports: Reviewed and negative Psychiatric: reports: Reviewed and negative Endocrine: reports: Reviewed and negative Immunocompromised: reports: Reviewed and negative PD PAST MEDICAL HISTORY - Past Surgical History Past Surgical History: No - Present Medications Home Medications: Ambulatory Orders Medication Instructions Recorded Confirmed Cyclobenzaprine [Flexeril] 10 mg PO TID PRN #20 tablet 02/03/22 Famotidine [Pepcid] 20 mg PO BID #60 tablet 02/03/22 HYDROcod/ACETAM 5/325 [Davis 5/325] 1 - 2 tab PO Q6H PRN #15 tablet 02/03/22 Ibuprofen [Motrin] 600 mg PO Q6H PRN #30 tab 02/03/22 Lidocaine Patch 5% [Lidoderm Patch] 1 patch TOP DAILY PRN #10 patch 02/03/22 HYDROcod/ACETAM 5/325 [Davis 5/325] 1 - 2 tablet PO Q6H PRN #14 tablet 03/31/22 Sulfamethox/Trimeth 800/160 1 each PO BID #14 tablet 03/31/22 [Bactrim Ds 800/160] cephALEXin [Keflex] 500 mg PO Q6H #28 cap 03/31/22 methylPREDNISolone [Medrol] 4 mg PO DAILY #1 tab 03/31/22 - Allergies Allergies/Adverse Reactions: Allergies Allergy/AdvReac Type Severity Reaction Status Date / Time No Known Drug Allergies Allergy Verified 09/26/21 18:13 - Social History Does the pt smoke?: No Smoking Status: Never smoker Does the pt drink ETOH?: No Does the pt have substance abuse?: No - Immunizations Immunizations are current?: Yes - POLST Patient has POLST: No PD ED PE NORMAL - Vitals Vital signs reviewed: Yes - General General: Alert and oriented X 3, No acute distress, Well developed/nourished - HEENT HEENT: Atraumatic, PERRL, EOMI, Moist mucous membranes - Neck Neck: Supple, no meningeal sign, Other (Mild goiter with mild generalized edema of left and right anterior neck without erythema. No induration or distinct fluctuance. Tenderness diffusely over left neck extending laterally and posteriorly and superiorly toward patient's ear.) - Cardiac Cardiac: RRR, No murmur, Strong equal pulses - Respiratory Respiratory: No respiratory distress, Clear bilaterally, Other (No stridor.) - Abdomen Abdomen: Soft, Non tender, Non distended - Derm Derm: Normal color, Warm and dry, No rash - Extremities Extremities: No deformity - Neuro Neuro: Alert and oriented X 3 - Psych Psych: Normal mood, Normal affect Results - Vitals Vitals: Oxygen O2 Source Room air - Labs Labs: Laboratory Tests 03/31/22 03/31/22 03/31/22 10:32 10:32 10:32 WBC 11.5 H RBC 4.96 Hgb 12.2 Hct 38.6 MCV 77.8 L MCH 24.6 L MCHC 31.6 L RDW 15.9 H Plt Count 267 MPV 9.5 Neut # (Auto) 8.4 H Lymph # (Auto) 1.7 Hudson # (Auto) 1.2 H Eos # (Auto) 0.1 Baso # (Auto) 0.0 Absolute Nucleated RBC 0.00 Nucleated RBC % 0.0 Sodium 135 Potassium 3.8 Chloride 98 L Carbon Dioxide 26 Anion Gap 11.0 BUN 11 Creatinine 0.6 Estimated GFR (MDRD) 113 Glucose 93 Calcium 9.4 Total Bilirubin 1.0 AST 21 ALT 22 Alkaline Phosphatase 64 Total Protein 8.8 H Albumin 4.1 Globulin 4.7 H Albumin/Globulin Ratio 0.9 L Lipase 31 Serum HCG, Qual NEGATIVE Urine Color Urine Clarity Urine pH Ur Specific [place] Urine Protein Urine Glucose (UA) Urine Ketones Urine Occult Blood Urine Nitrite Urine Bilirubin Urine Urobilinogen Ur Leukocyte Esterase Urine RBC Urine WBC Ur Squamous Epith Cells Urine Bacteria Urine Casts Ur Microscopic Review Urine Culture Comments Nasal Adenovirus (PCR) Nasal B. parapertussis DNA (PCR) Nasal Coronavir 229E PCR Nasal Coronavir HKU1 PCR Nasal Coronavir NL63 PCR Nasal Coronavir OC43 PCR Nasal Enterovir/Rhinovir PCR Nasal Influenza B PCR Nasal Influenza A PCR Nasal Parainfluen 1 PCR Nasal Parainfluen 2 PCR Nasal Parainfluen 3 PCR Nasal Parainfluen 4 PCR Nasal RSV (PCR) Nasal B.pertussis DNA PCR Nasal C.pneumoniae (PCR) Thaddeus Human Metapneumo PCR Nasal M.pneumoniae (PCR) Nasal SARS-CoV-2 (PCR) 03/31/22 03/31/22 10:52 10:52 WBC RBC Hgb Hct MCV MCH MCHC RDW Plt Count MPV Neut # (Auto) Lymph # (Auto) Hudson # (Auto) Eos # (Auto) Baso # (Auto) Absolute Nucleated RBC Nucleated RBC % Sodium Potassium Chloride Carbon Dioxide Anion Gap BUN Creatinine Estimated GFR (MDRD) Glucose Calcium Total Bilirubin AST ALT Alkaline Phosphatase Total Protein Albumin Globulin Albumin/Globulin Ratio Lipase Serum HCG, Qual Urine Color YELLOW Urine Clarity CLEAR Urine pH 6.0 Ur Specific [place] 1.015 Urine Protein TRACE Urine Glucose (UA) NEGATIVE Urine Ketones 40 H Urine Occult Blood MODERATE H Urine Nitrite NEGATIVE Urine Bilirubin NEGATIVE Urine Urobilinogen 1 (NORMAL) Ur Leukocyte Esterase NEGATIVE Urine RBC 6-10 H Urine WBC 0-3 Ur Squamous Epith Cells RARE Squamous Urine Bacteria Few Urine Casts 0-2 Granular Casts Ur Microscopic Review INDICATED Urine Culture Comments NOT INDICATED Nasal Adenovirus (PCR) NOT DETECTED Nasal B. parapertussis DNA (PCR) NOT DETECTED Nasal Coronavir 229E PCR NOT DETECTED Nasal Coronavir HKU1 PCR NOT DETECTED Nasal Coronavir NL63 PCR NOT DETECTED Nasal Coronavir OC43 PCR NOT DETECTED Nasal Enterovir/Rhinovir PCR NOT DETECTED Nasal Influenza B PCR NOT DETECTED Nasal Influenza A PCR NOT DETECTED Nasal Parainfluen 1 PCR NOT DETECTED Nasal Parainfluen 2 PCR NOT DETECTED Nasal Parainfluen 3 PCR NOT DETECTED Nasal Parainfluen 4 PCR NOT DETECTED Nasal RSV (PCR) NOT DETECTED Nasal B.pertussis DNA PCR NOT DETECTED Nasal C.pneumoniae (PCR) NOT DETECTED Thaddeus Human Metapneumo PCR NOT DETECTED Nasal M.pneumoniae (PCR) NOT DETECTED Nasal SARS-CoV-2 (PCR) NOT DETECTED - Rads (name of study) CT neck with IV contrast Radiology: Final report received, EMP read indepedently, See rad report (Ill- defined fluid surrounding thyroid nodule as described above with mass-effect. Hounsfield units are borderline for hemorrhage. No visualization of active extravasation.) Ultrasound soft tissue neck Radiology: Final report received, See rad report (Unchanged left thyroid nodule without associated discrete fluid collection such as abscess. However, it is noted that fluid is present adjacent to the left lobe with loss of fat planes on CT without organized collection) PD MEDICAL DECISION MAKING - ED course Complexity details: reviewed results, re-evaluated patient, considered differential, d/w patient ED course: The patient was treated with Decadron and worked up with labs which showed a mild leukocytosis, as well as urinalysis, respiratory PCR panel, and ultimately CT soft tissue neck with IV contrast. This showed ill-defined fluid surrounding the left thyroid nodule which had recently been biopsied, which fluid extended to the jugular and carotid vessels as well as posteriorly along the fat planes toward the vertebrae. Given the concern for possible extension to the vessels, I did order ultrasound to see if there is any active bleeding and this did not show any dopplerable active bleeding. The patient was initially given doses of Bactrim and Keflex. I spoke with Dr. Leger, who was covering for pt's ENT specialist Dr. Johnson. She stated that it would be unlikely to have an infection post-biopsy, but since the pt is having fevers and no other source for them, she agrees with antibiotics. She also recommended continuing steroids. Dr. Leger stated she would have Dr. Johnson call the pt tomorrow to check in. I discussed all of this with the pt, who reported feeling better than when she first came in. The pt was agreeable to the plan. We have discussed the usual indications for return, especially having a low threshold for return, should she feel that her airway is at all tight. Departure - Departure Disposition: 01 Home, Self Care Clinical Impression: Postprocedural puncture site infection, Post-procedural fever Condition: Stable Instructions: ED Wound Infec After Surgery Prescriptions: Sulfamethox/Trimeth 800/160 [Bactrim Ds 800/160] 1 each PO BID #14 tablet cephALEXin [Keflex] 500 mg PO Q6H #28 cap methylPREDNISolone [Medrol] 4 mg PO DAILY #1 tab HYDROcod/ACETAM 5/325 [Davis 5/325] 1 - 2 tablet PO Q6H PRN #14 tablet PRN Reason: Pain Comments: You have been evaluated for your neck pain and fevers today, not only for possible infection at the procedural site, but also for possible infection elsewhere that may be going on coincidentally. Your urinalysis and viral panel are negative. You are not reporting any respiratory symptoms that would can be concerning for possible pneumonia. You do not have any redness or firmness of the tissues overlying the thyroid or the side of your neck where you are hurting, Which would be unusual if you had infection just under the area. However, your CT and ultrasound do show some ill-defined fluid collecting around the nodule and 1 tracking further back in your neck, and since she has had the fevers and we do not have another source, we will go ahead and treat with antibiotics. I have discussed her case with Dr. Leger, who is on-call for ENT at [facility], and she will pass the information along to Dr. Woo. If he has further concerns, he will call you at home. She has recommended antibiotics as well as a course of steroids to help bring the inflammation down. He has prescriptionsHave been electronically transmitted to [facility] [place], which is your pharmacy of preference on record. If you develop worsening pain and difficulty swallowing, please return to the emergency department immediately. Discharge Date/Time: 03/31/22 20:06
== END 2022-03-31 20:06 | disposition home or self-care (01) ==
LOC: ED 09:00
DX: T81.49XA Infection following a procedure, other surgical site, initial encounter (principal)
CPT/HCPCS: 36415; 70491; 76536; 80053; 81001; 83690; 84703; 85025; 87633; 96365; 96366; 96375; 99284; A9270; J3490; Q9967; 81003; 87086

== ENCOUNTER 2022-10-14 20:48 | Emergency (ER) | payer MEDICAID ==
[2022-10-14 21:24] LABS: BASOPHILS % (AUTO) 0.4 %; EOSINOPHILS # (AUTO) 0.2 10^3/uL (0.0-0.7); EOSINOPHILS % (AUTO) 3.9 %; HCT - HEMATOCRIT 44.5 % (37.0-47.0); HGB - HEMOGLOBIN 13.8 g/dL (12.0-16.0); LYMPHOCYTES # (AUTO) 1.9 10^3/uL (1.5-3.5); MEAN CORPUSCULAR HEMOGLOBIN 25.5 pg (27.0-31.0); MEAN CORPUSCULAR VOLUME 82.3 fL (81.0-99.0); MEAN PLATELET VOLUME 9.9 fL (7.9-10.8); MONOCYTES # (AUTO) 0.5 10^3/uL (0.0-1.0); MONOCYTES % (AUTO) 9.7 %; NEUTROPHILS # (AUTO) 2.8 10^3/uL (1.5-6.6); NEUTROPHILS % (AUTO) 51.6 %; PLT - PLATELET COUNT 236 10^3/uL (130-450); RED BLOOD COUNT 5.41 10^6/uL (4.20-5.40); RED CELL DISTRIBUTION WIDTH 15.6 % (12.0-15.0); WHITE BLOOD COUNT 5.4 x10^3/uL (4.8-10.8)
[2022-10-14 21:35] LABS: ALBUMIN 4.9 g/dL (3.2-5.5); ALBUMIN/GLOBULIN RATIO 1.3 (1.0-2.2); BILIRUBIN,TOTAL 0.4 mg/dL (0.2-1.0); CALCIUM 7.8 mg/dL (8.5-10.3); CREATININE 0.6 mg/dL (0.4-1.0); POTASSIUM 3.1 mmol/L (3.5-5.0); TOTAL PROTEIN 8.8 g/dL (6.7-8.2)
--- NOTE | 2022-10-14 22:14 | XRAY Report ---
PROCEDURE: Chest 1 View X-Ray INDICATIONS: Chest pain TECHNIQUE: One view of the chest was acquired. COMPARISON: None. FINDINGS: Surgical changes and devices: None. Lungs and pleura: No pleural effusions or pneumothorax. Lungs are clear. Mediastinum: Mediastinal contours appear normal. Heart size is normal. Bones and chest wall: No suspicious bony lesions. Overlying soft tissues appear unremarkable. IMPRESSION: 1. No acute cardiopulmonary disease. Reviewed by: Jamel Gallagher MD on 10/14/2022 10:12 PM PDT Approved by: Jamel Gallagher MD on 10/14/2022 10:12 PM PDT Station ID: [id number]
[2022-10-14 23:08] LABS: CALCIUM, IONIZED 0.94 mmol/L (1.15-1.33); VBG PH 7.437 (7.31-7.41)
[2022-10-14] MEDS ORDERED: POTASSIUM CHLORIDE 20 MEQ/15 ML UDC PO STA (23:13)
[2022-10-14] MEDS ORDERED: CALCIUM GLUCONATE IN NS 0.9% 2,000 MG/100 ML BAG IV STA (23:15)
--- NOTE | 2022-10-14 23:18 | ED Physician Documentation ---
History of Present Illness - Stated complaint Stated Complaint: NERVE EPISODES - Chief complaint Chief Complaint: Cardiac - History obtained from History obtained from: Patient - Additonal information Additional information: 37-year-old woman status post thyroidectomy in March presents with paresthesia, cramping in arms, jaws locking, and an acute episode of heart fluttering at 1700 tonight. Palpitations have now resolved. Review of Systems Constitutional: denies: Fever Eyes: denies: Loss of vision Ears: denies: Loss of hearing Nose: denies: Rhinorrhea / runny nose Throat: denies: Sore throat Cardiac: reports: Chest pain / pressure, Palpitations. denies: Pedal edema Respiratory: denies: Dyspnea, Cough PD PAST MEDICAL HISTORY - Past Surgical History Past Surgical History: No - Present Medications Home Medications: Ambulatory Orders Medication Instructions Recorded Confirmed Cyclobenzaprine [Flexeril] 10 mg PO TID PRN #20 tablet 02/03/22 Famotidine [Pepcid] 20 mg PO BID #60 tablet 02/03/22 HYDROcod/ACETAM 5/325 [[place] 5/325] 1 - 2 tab PO Q6H PRN #15 tablet 02/03/22 Ibuprofen [Motrin] 600 mg PO Q6H PRN #30 tab 02/03/22 Lidocaine Patch 5% [Lidoderm Patch] 1 patch TOP DAILY PRN #10 patch 02/03/22 HYDROcod/ACETAM 5/325 [[place] 5/325] 1 - 2 tablet PO Q6H PRN #14 tablet 03/31/22 Sulfamethox/Trimeth 800/160 1 each PO BID #14 tablet 03/31/22 [Bactrim Ds 800/160] cephALEXin [Keflex] 500 mg PO Q6H #28 cap 03/31/22 methylPREDNISolone [Medrol] 4 mg PO DAILY #1 tab 03/31/22 Levothyroxine [Synthroid] 112 mcg PO QDAC 04/12/22 04/12/22 calcitrioL [Rocaltrol] 0.5 mcg PO BID 04/12/22 04/12/22 - Allergies Allergies/Adverse Reactions: Allergies Allergy/AdvReac Type Severity Reaction Status Date / Time No Known Drug Allergies Allergy Verified 10/14/22 21:02 - Social History Does the pt smoke?: No Smoking Status: Never smoker Does the pt drink ETOH?: No Does the pt have substance abuse?: No - Immunizations Immunizations are current?: Yes - POLST Patient has POLST: No PD ED PE NORMAL - Vitals Vital signs reviewed: Yes - General General: Alert and oriented X 3, No acute distress, Well developed/nourished - HEENT HEENT: Atraumatic, PERRL, EOMI - Neck Neck: Supple, no meningeal sign - Cardiac Cardiac: RRR - Respiratory Respiratory: No respiratory distress, Clear bilaterally - Abdomen Abdomen: Non tender, Non distended - Derm Derm: Normal color, Warm and dry Results - Vitals Vitals: Vital Signs - 24 hr 10/14/22 10/14/22 10/14/22 21:02 21:29 23:07 Temperature 36.6 C Heart Rate 84 66 74 Respiratory 16 14 14 Rate Blood Pressure 147/80 H 148/97 H 118/80 O2 Saturation 100 100 100 Oxygen O2 Source Room air - EKG (time done) 2120 EKG releavant findings:: EKG personally interpreted by author of this note. Relevant findings are: Rate: Rate (enter#) (65) Rhythm: NSR [place]: Normal Intervals: Normal ID, Other (qt 468/487) QRS: Normal Ischemia: Normal ST segments - Labs Labs: Laboratory Tests 10/14/22 10/14/22 10/14/22 21:17 21:17 21:17 WBC 5.4 RBC 5.41 H Hgb 13.8 Hct 44.5 MCV 82.3 MCH 25.5 L MCHC 31.0 L RDW 15.6 H Plt Count 236 MPV 9.9 Neut # (Auto) 2.8 Lymph # (Auto) 1.9 [place] # (Auto) 0.5 Eos # (Auto) 0.2 Baso # (Auto) 0.0 Absolute Nucleated RBC 0.00 Nucleated RBC % 0.0 VBG pH Ionized Calcium Sodium 139 Potassium 3.1 L Chloride 100 L Carbon Dioxide 28 Anion Gap 11.0 BUN 12 Creatinine 0.6 Estimated GFR (MDRD) 112 Glucose 98 Calcium 7.8 L Total Bilirubin 0.4 AST 26 ALT 30 Alkaline Phosphatase 45 Troponin I High Sens 2.8 Total Protein 8.8 H Albumin 4.9 Globulin 3.9 Albumin/Globulin Ratio 1.3 Lipase 45 TSH Free T4 Thyroxine (T4) Free T3 pg/mL Total T3 T3 Uptake 10/14/22 10/14/22 10/14/22 21:17 21:17 23:02 WBC RBC Hgb Hct MCV MCH MCHC RDW Plt Count MPV Neut # (Auto) Lymph # (Auto) [place] # (Auto) Eos # (Auto) Baso # (Auto) Absolute Nucleated RBC Nucleated RBC % VBG pH 7.437 H Ionized Calcium 0.94 L Sodium Potassium Chloride Carbon Dioxide Anion Gap BUN Creatinine Estimated GFR (MDRD) Glucose Calcium Total Bilirubin AST ALT Alkaline Phosphatase Troponin I High Sens Total Protein Albumin Globulin Albumin/Globulin Ratio Lipase TSH 0.15 L Free T4 1.19 Thyroxine (T4) 10.38 Free T3 pg/mL 3.08 Total T3 0.99 T3 Uptake 38.5 PD Medical Decision Making - ED course ED course: 37-year-old woman presents with heart palpitations and paresthesias/cramping/jaw pain. EKG was benign. CXR Independently interpreted by myself and outside radiologist as no evidence of acute cardiopulmonary disease. Cardiac monitoring was unremarkable. Lab work included CBC, Abdominal panel, thyroid function panel, troponin. Labwork normal except for low TSH c/w thyroidectomy and synthroid supplementation, K 3.1 and Ca 7.8, indicating possible loss of parathyroid tissue mediating this. Supplemental K and Ca provided and I advised her to take 1.5 X her usual calcium supplementation until advised by her thyroid specialist. return precautions given. Departure - Departure Disposition: 01 Home, Self Care Clinical Impression: Palpitations, Hypocalcemia, Hypokalemia Condition: Stable Instructions: Hypocalcemia Dc Comments: You were seen in the emergency department for evaluation after having heart palpitations. Your potassium and calcium were found to be low. Please follow- up with your thyroid specialist at [facility] and return to the emergency department for new or worsening symptoms or other concerns. Consider taking 1- 1/2 times your current calcium supplement until advised by your specialist.
[2022-10-14 23:53] LABS: T3 UPTAKE 38.5 % (32.0-48.4)
[2022-10-14 23:54] LABS: T4 (THYROXINE) 10.38 ug/dL (6.09-12.23)
[2022-10-14 23:56] LABS: THYROID STIMULATING HORMONE 0.15 uIU/mL (0.34-5.60)
[2022-10-14 23:57] LABS: FREE T3 3.08 pg/mL (2.5-3.9)
[2022-10-14 23:58] LABS: FREE T4 (FREE THYROXINE) 1.19 ng/dL (0.58-1.64)
[2022-10-15 00:52] VITALS: BP 117/75
== END 2022-10-15 00:50 | disposition home or self-care (01) ==
LOC: ED 20:48
DX: R00.2 Palpitations (principal); E83.51 Hypocalcemia; E87.6 Hypokalemia
CPT/HCPCS: 36415; 71045; 80053; 82330; 83690; 84436; 84439; 84443; 84479; 84480; 84481; 84484; 85025; 93005; 96365; 99284; A9270

== ENCOUNTER 2022-12-16 10:13 | Emergency (ER) | payer MEDICAID ==
[2022-12-16 10:52] LABS: BASOPHILS % (AUTO) 0.5 %; EOSINOPHILS # (AUTO) 0.3 10^3/uL (0.0-0.7); EOSINOPHILS % (AUTO) 4.9 %; HCT - HEMATOCRIT 42.5 % (37.0-47.0); HGB - HEMOGLOBIN 13.9 g/dL (12.0-16.0); LYMPHOCYTES % (AUTO) 32.7 %; MEAN CORPUSCULAR HEMOGLOBIN 27.4 pg (27.0-31.0); MEAN CORPUSCULAR HGB CONC 32.7 g/dL (32.0-36.0); MEAN CORPUSCULAR VOLUME 83.8 fL (81.0-99.0); MEAN PLATELET VOLUME 10.1 fL (7.9-10.8); MONOCYTES # (AUTO) 0.5 10^3/uL (0.0-1.0); MONOCYTES % (AUTO) 7.9 %; NEUTROPHILS # (AUTO) 3.3 10^3/uL (1.5-6.6); NEUTROPHILS % (AUTO) 53.7 %; PLT - PLATELET COUNT 240 10^3/uL (130-450); RED BLOOD COUNT 5.07 10^6/uL (4.20-5.40); RED CELL DISTRIBUTION WIDTH 14.4 % (12.0-15.0); WHITE BLOOD COUNT 6.1 x10^3/uL (4.8-10.8)
[2022-12-16 10:53] LABS: VBG HCO3 28.1 mmol/L (23-28); VBG PCO2 48.3 mmHg (41-51); VBG PH 7.383 (7.31-7.41); VBG PO2 31.1 mmHg (25-47)
[2022-12-16 10:54] LABS: VBG BASE EXCESS 2.2 mmol/L (-2 - +2); VBG OXYGEN SATURATION 59.6 % (60-80); VBG TOTAL CO2 29.6 mmol/L (24-29)
[2022-12-16 11:08] LABS: ALBUMIN 4.5 g/dL (3.2-5.5); ALBUMIN/GLOBULIN RATIO 1.2 (1.0-2.2); BILIRUBIN,TOTAL 0.6 mg/dL (0.2-1.0); CREATININE 0.7 mg/dL (0.4-1.0); POTASSIUM 3.6 mmol/L (3.5-5.0); TOTAL PROTEIN 8.3 g/dL (6.7-8.2)
--- NOTE | 2022-12-16 11:11 | XRAY Report ---
PROCEDURE: Chest 1 View X-Ray INDICATIONS: Chest pain TECHNIQUE: One view of the chest was acquired. COMPARISON: 10/14/2022. FINDINGS: Surgical changes and devices: None. Lungs and pleura: No pleural effusions or pneumothorax. Lungs are clear. Mediastinum: Mediastinal contours appear normal. Heart size is normal. Bones and chest wall: No suspicious bony lesions. Overlying soft tissues appear unremarkable. IMPRESSION: No acute cardiopulmonary process. Reviewed by: Lawrence Alcala MD on 12/16/2022 11:09 AM PDT Approved by: Lawrence Alcala MD on 12/16/2022 11:09 AM PDT Station ID: [id number]
[2022-12-16] MEDS ORDERED: CALCIUM GLUC 1,000MG/50ML-NACL 1,000 MG/50 ML BAG IV STA (11:37)
--- NOTE | 2022-12-16 11:41 | ED Physician Documentation ---
PD HPI CHEST PAIN - Stated complaint Stated Complaint: CHEST PX,TINGLING - Chief complaint Chief Complaint: Cardiac - History obtained from History obtained from: Patient - Additional information Additional information: She has a history of thyroidectomy and has had hypocalcemia since. She takes [id number]'s calcium supplement but thinks her calcium level is low because she had similar symptoms to what is going on now. For the last 2 days she has had on and off sharp left sternal pain associated with tingling around the lips and fingertips and headache for which she declines any specific treatment. She has no history of heart problems. No pedal edema or calf pain bigeminy PD PAST MEDICAL HISTORY - Past Surgical History Past Surgical History: No - Present Medications Home Medications: Ambulatory Orders Medication Instructions Recorded Confirmed Levothyroxine [Synthroid] 112 mcg PO QDAC 04/12/22 04/12/22 calcitrioL [Rocaltrol] 0.25 mcg PO BID 04/12/22 04/12/22 Calcium Carb/Vitamin D3/Vit K1 2 each PO QID 12/16/22 12/16/22 [Viactiv 650 mg-12.5 Mcg Chew] - Allergies Allergies/Adverse Reactions: Allergies Allergy/AdvReac Type Severity Reaction Status Date / Time No Known Drug Allergies Allergy Verified 12/16/22 10:27 - Social History Does the pt smoke?: No Smoking Status: Never smoker Does the pt drink ETOH?: No Does the pt have substance abuse?: No - Immunizations Immunizations are current?: Yes - POLST Patient has POLST: No PD ED PE NORMAL - Vitals Vital signs reviewed: Yes - General General: Alert and oriented X 3, No acute distress - HEENT HEENT: PERRL, EOMI - Neck Neck: Supple, no meningeal sign, No bony TTP - Cardiac Cardiac: RRR, No murmur - Respiratory Respiratory: No respiratory distress, Clear bilaterally - Abdomen Abdomen: Non tender - Back Back: No CVA TTP, No spinal TTP - Derm Derm: Normal color - Extremities Extremities: No edema, No calf tenderness / cord - Neuro Neuro: Alert and oriented X 3, Normal speech Results - Vitals Vitals: Vital Signs - 24 hr 12/16/22 12/16/22 12/16/22 10:23 10:59 11:29 Temperature 36.5 C Heart Rate 66 72 66 Respiratory 16 14 12 Rate Blood Pressure 135/77 H 115/68 112/57 L O2 Saturation 100 100 100 Oxygen O2 Source Room air - EKG (time done) 1033 EKG releavant findings:: EKG personally interpreted by author of this note. Relevant findings are: Rate: Rate (enter#) (63) Rhythm: NSR [place]: Normal Intervals: Normal [place] QRS: Normal Ischemia: Non specific changes. No: ST elevation c/w ischemia, ST depression - Labs Labs: Laboratory Tests 12/16/22 12/16/22 12/16/22 10:43 10:43 10:43 WBC 6.1 RBC 5.07 Hgb 13.9 Hct 42.5 MCV 83.8 MCH 27.4 MCHC 32.7 RDW 14.4 Plt Count 240 MPV 10.1 Neut # (Auto) 3.3 Lymph # (Auto) 2.0 [place] # (Auto) 0.5 Eos # (Auto) 0.3 Baso # (Auto) 0.0 Absolute Nucleated RBC 0.00 Nucleated RBC % 0.0 VBG pH VBG pCO2 VBG pO2 VBG HCO3 VBG Total CO2 VBG O2 Saturation VBG Base Excess Sodium 138 Potassium 3.6 Chloride 100 L Carbon Dioxide 29 Anion Gap 9.0 BUN 10 Creatinine 0.7 Estimated GFR (MDRD) 94 Glucose 89 Calcium 8.0 L Total Bilirubin 0.6 AST 24 ALT 30 Alkaline Phosphatase 43 Troponin I High Sens < 2.3 L Total Protein 8.3 H Albumin 4.5 Globulin 3.8 Albumin/Globulin Ratio 1.2 Lipase 36 12/16/22 10:43 WBC RBC Hgb Hct MCV MCH MCHC RDW Plt Count MPV Neut # (Auto) Lymph # (Auto) [place] # (Auto) Eos # (Auto) Baso # (Auto) Absolute Nucleated RBC Nucleated RBC % VBG pH 7.383 VBG pCO2 48.3 VBG pO2 31.1 VBG HCO3 28.1 H VBG Total CO2 29.6 H VBG O2 Saturation 59.6 L VBG Base Excess 2.2 H Sodium Potassium Chloride Carbon Dioxide Anion Gap BUN Creatinine Estimated GFR (MDRD) Glucose Calcium Total Bilirubin AST ALT Alkaline Phosphatase Troponin I High Sens Total Protein Albumin Globulin Albumin/Globulin Ratio Lipase PD Medical Decision Making - ED course ED course: 37-year-old woman with history of recurrent hypocalcemia presents with symptoms that she thinks are related to same and she does have mild hypocalcemia at 8.0 here with an otherwise negative CMP, negative troponin, and normal CBC. Her x- ray is nonischemic. She does have some flattened T waves which could be due to the hypocalcemia. She was administered 1 g of calcium gluconate IV here. Departure - Departure Disposition: Home, Self Care Clinical Impression: Chest pain, Hypocalcemia Condition: Good Record reviewed to determine appropriate education?: Yes Instructions: ED Chest Pain Atypical Unkn Cause Comments: Your calcium level today was 8.0. The low end of normal would be 8.5, this is not alarmingly low but certainly is low enough that it may be causing her symptoms. We have given you 1 g of calcium gluconate IV here. Continue your calcium supplementation. Call your doctor to arrange a follow-up appointment, make the next available appointment. In the interim, return anytime if worse or if new symptoms develop.
[2022-12-16 12:23] VITALS: BP 124/50
[2022-12-16 12:35] LABS: BILIRUBIN,URINE NEGATIVE (NEGATIVE); GLUCOSE, URINE (UA) NEGATIVE (NEGATIVE); KETONES,URINE (UA) NEGATIVE (NEGATIVE); LEUKOCYTE ESTERASE, URINE NEGATIVE (NEGATIVE); NITRITE,URINE NEGATIVE (NEGATIVE); OCCULT BLOOD,URINE NEGATIVE (NEGATIVE); PH,URINE 6.5 PH (5.0-7.5); PROTEIN,URINE NEGATIVE (NEGATIVE); UROBILINOGEN,URINE 0.2 (NORMAL) E.U./dL (NORMAL)
[2022-12-16 12:38] LABS: CLARITY,URINE CLEAR (CLEAR); HCG UR QUAL NEGATIVE
== END 2022-12-16 15:20 | disposition home or self-care (01) ==
LOC: ED 10:13
DX: R07.9 Chest pain, unspecified (principal); E83.51 Hypocalcemia
CPT/HCPCS: 36415; 80053; 81001; 81003; 81025; 82803; 83690; 84484; 85025; 87086; 93005; 96365; 99284

== ENCOUNTER 2023-03-30 10:36 | Emergency (ER) | payer MEDICAID ==
[2023-03-30 10:49] VITALS: BP 141/71; O2SAT 99
--- NOTE | 2023-03-30 11:45 | ED Physician Documentation ---
History of Present Illness - Stated complaint Stated Complaint: RT FACE PX - Chief complaint Chief Complaint: Heent - History obtained from History obtained from: Patient - History of Present Illness Timing: How many weeks ago (1) Pain level max: 6 Pain level now: 6 - Additonal information Additional information: Patient is a 37-year-old female who presents to the emergency department complaining of right lower jaw pain. This is been a ongoing for the past several days. She has known dental caries and a known cracked tooth. No fevers. No chills. Worse with eating and drinking. Has not seen a dentist. Denies any possibility of . No rhinorrhea or congestion. No ear pain. Review of Systems Constitutional: denies: Fever, Chills Skin: denies: Rash Neurologic: denies: Headache PD PAST MEDICAL HISTORY - Past Medical History Past Medical History: Yes Endocrine/Autoimmune: HyPOthyroidism - Past Surgical History Past Surgical History: No - Present Medications Home Medications: Ambulatory Orders Medication Instructions Recorded Confirmed Levothyroxine [Synthroid] 112 mcg PO QDAC 04/12/22 03/30/23 calcitrioL [Rocaltrol] 0.25 mcg PO BID 04/12/22 03/30/23 Calcium Carb/Vitamin D3/Vit K1 2 each PO QID 12/16/22 03/30/23 [Viactiv 650 mg-12.5 Mcg Chew] Amox/Clav 875/125 [Augmentin] 1 tab PO Q12H #14 tablet 03/30/23 Chlorhexidine Gluconate [Peridex] 15 ml MM BID #118 ml 03/30/23 - Allergies Allergies/Adverse Reactions: Allergies Allergy/AdvReac Type Severity Reaction Status Date / Time No Known Drug Allergies Allergy Verified 12/16/22 10:27 - Social History Does the pt smoke?: No Smoking Status: Never smoker Does the pt drink ETOH?: No Does the pt have substance abuse?: No - Immunizations Immunizations are current?: Yes - POLST Patient has POLST: No PD ED PE NORMAL - Vitals Vital signs reviewed: Yes - General General: Alert and oriented X 3, No acute distress - HEENT HEENT: Ears normal, Moist mucous membranes, Other (No facial swelling. Large open tooth right lower molar. No drainable abscess. No purulence. There is tenderness at the site. Normal phonation. No trismus.) - Neck Neck: Supple, no meningeal sign - Derm Derm: Warm and dry - Neuro Neuro: Alert and oriented X 3 Results - Vitals Vitals: Vital Signs - 24 hr 03/30/23 10:41 Temperature 37.0 C Heart Rate 79 Respiratory 14 Rate Blood Pressure 141/71 H O2 Saturation 99 Oxygen O2 Source Room air PD Medical Decision Making - ED course Complexity details: considered differential, d/w patient ED course: Patient with dental caries and dental pain. Will place on antibiotics. No normal phonation. No trismus. Normal intraoral exam other than the fractured tooth. Patient will follow-up with her dentist this week. Patient states she "does not do well with pain medication". Patient counseled regarding signs and symptoms for which I believe and urgent re-evaluation would be necessary. Patient with good understanding of and agreement to plan and is comfortable going home at this time This document was made in part using voice recognition software. While efforts are made to proofread this document, sound alike and grammatical errors may occur. Departure - Departure Disposition: 01 Home, Self Care Clinical Impression: Dental caries, Pain, dental Condition: Good Instructions: ED Cavity Dental Follow-Up: MAGGIE GARCIA ND [Primary Care Provider] - Prescriptions: Amox/Clav 875/125 [Augmentin] 1 tab PO Q12H #14 tablet Chlorhexidine Gluconate [Peridex] 15 ml MM BID #118 ml Comments: Your prescriptions were sent to [facility] in [place]. Please take all antibiotics until gone. Please return if you worsen. Use the chlorhexidine mouth rinse as prescribed as well. Please follow-up with a dentist for further care. Forms: PCP List Discharge Date/Time: 03/30/23 11:48
== END 2023-03-30 11:48 | disposition home or self-care (01) ==
LOC: ED 10:36
DX: K02.9 Dental caries, unspecified (principal); E03.9 Hypothyroidism, unspecified; Z79.899 Other long term (current) drug therapy
CPT/HCPCS: 99282; 99283